=== PATIENT | male | born 1950 | race Caucasian/White ===

== ENCOUNTER → 2017-04-07 | Outpatient (CLI) | payer MEDICARE ==
--- NOTE | 2017-04-07 23:28 | MR ---
EXAMINATION TYPE: MR brain wo con DATE OF EXAM: 04/07/2017 COMPARISON: NONE HISTORY: Cerebral infarction, unspecified Standard multiplanar, multisequence MRI departmental protocol FINDINGS: There is a 1.5 cm mucous retention cyst in the right maxillary sinus. The ventricles have n ormal size. There is no mass effect nor midline shift. There is no sign of intracranial hemorrhage. T here are scattered foci of increased signal in the white matter around the lateral ventricles on the T2 and FLAIR images. Total number is less than 10. These measure up to 8 mm. There is a single focus in the anterior left temporal lobe. The brainstem is intact. Sella turcica appears normal. Corpus danny losum appears normal. There is no evidence of cortical infarct. IMPRESSION: White matter changes are nonspecific. Consider chronic small vessel ischemia and less likely demyelin ating disease. No evidence of cortical infarct. Small mucus retention cyst right maxillary sinus.
== END | disposition home or self-care (01) ==
LOC: RADMRIMAIN 10:29
PROVIDERS: ATTEND Psychiatry & Neurology Neurology
DX: I63.9 Cerebral infarction, unspecified (principal); G25.0 Essential tremor
CPT/HCPCS: 70551

== ENCOUNTER → 2017-05-25 | Outpatient (CLI) | payer MEDICARE ==
--- NOTE | 2017-05-25 12:11 | MR ---
EXAMINATION TYPE: MR shoulder LT wo con DATE OF EXAM: 05/25/2017 COMPARISON: Plain film 05/05/2017 HISTORY: Pain in left shoulder TECHNIQUE: Multiplanar, multisequence imaging of the left shoulder is performed without contrast. FINDINGS: Rotator Cuff: There is thickening of the rotator cuff at its insertion, increased signal within the r otator cuff at its insertion may be due to tendinosis, plain film shows calcific tendinitis, Acromioclavicular Joint: Arthropathy of the acromioclavicular joint, hypertrophic change causes mass effect on the musculotendinous junction of supraspinatus. Glenohumeral Joint: Intact. Labrum: The labrum appears grossly intact given limitation of non-arthrogram study. Biceps Tendon: The long head of biceps is in normal location within bicipital groove. Fluid signal co urses along the long head of biceps tendon, correlate for tenosynovitis., Bone marrow signal: There are pseudocysts present within the humeral head. Other: There is a small joint effusion. Some fluid signal present in the subacromial subdeltoid bursa . Distal acromion only slightly downturned. IMPRESSION: Tendinosis and calcific tendinitis. No gaston rotator cuff tear. Arthropathy as described, tenosynovit is. Correlate for impingement.
== END | disposition home or self-care (01) ==
LOC: RADMRIMAIN 10:30
PROVIDERS: ATTEND Orthopaedic Surgery
DX: M65.812 Other synovitis and tenosynovitis, left shoulder (principal); M75.92 Shoulder lesion, unspecified, left shoulder; M12.812 Other specific arthropathies, not elsewhere classified, left shoulder

== ENCOUNTER → 2018-02-01 | Outpatient (CLI) | payer MEDICARE ==
--- NOTE | 2018-02-01 18:37 | MR ---
Right ankle MRI HISTORY: Right ankle pain Multiplanar multisequence imaging through the right ankle No comparisons There is an osteochondral abnormality along the lateral ankle mortise, lesion measures approximately 9 mm in transverse dimension on coronal images x 1 cm in anterior to posterior dimension, T1 intermed iate signal, T2 hyperintensity is present, peripheral low signal compatible with sclerotic change wit h possible geode formation and multilocular appearance compatible with chronic injury, possible osteo necrosis. Alignment is maintained. No evident collapse. Joint spaces relatively maintained. Plantar a poneurosis is intact. There is a plantar calcaneal spur present. The Achilles tendon shows abnormal i nternal signal and thickening compatible with interstitial tear without disruption. Peroneal brevis and longus tendons are intact. Flexor and extensor tendons are intact. Some fluid sig nal present along the flexor tendons is noted. There is some fluid signal present at the level of the talar neck laterally extending towards the sinus Tarsi which may represent a ganglion cyst measuring approximately 2 to 3 cm by 7-8 mm x 9 mm. IMPRESSION: Lateral ankle mortise shows possible remote osteochondral injury without significant foca l defect as described, no evident collapse. Chronic Achilles tendon tear and possible ganglion cyst a s described, additional findings above.
== END | disposition home or self-care (01) ==
LOC: RADMRIMAIN 06:09
PROVIDERS: ATTEND Orthopaedic Surgery
DX: S86.011A Strain of right Achilles tendon, initial encounter (principal)

== ENCOUNTER → 2019-04-10 | Outpatient (CLI) | payer MEDICARE ==
--- NOTE | 2019-04-10 14:59 | US ---
EXAMINATION TYPE: US kidneys/renal and bladder DATE OF EXAM: 04/10/2019 COMPARISON: NONE CLINICAL HISTORY: R94.4 Abnormal results of kidney function studies. Abnormal labs EXAM MEASUREMENTS: Right Kidney: 11.8 x 5.0 x 6.5 cm Left Kidney: 11.6 x 5.2 x 5.9 cm Right Kidney: No hydronephrosis or masses seen Left Kidney: Lower pole cystic appearing lesion in sinus - 2.4 x 2.0 x 2.1 cm. Echogenic focus with shadow= 0.6 cm Bladder: distended, anechoic Bilateral Jets not seen There is no evidence for hydronephrosis at this point in time. The urinary bladder is nondistended. Bilateral ureteral jets are not seen. IMPRESSION: 1. No hydronephrosis of either kidney. 2. Left renal sinus cyst appears simple and benign measuring 2.4 cm. 3. 6 mm nonobstructing left renal calculus.
== END | disposition home or self-care (01) ==
LOC: RADUSWWP 12:55
PROVIDERS: ATTEND Family Medicine
DX: N20.0 Calculus of kidney (principal); N28.1 Cyst of kidney, acquired; I10 Essential (primary) hypertension
CPT/HCPCS: 76770

== ENCOUNTER → 2019-07-03 | Outpatient (CLI) | payer MEDICARE ==
--- NOTE | 2019-07-03 11:47 | XR ---
EXAMINATION TYPE: XR KUB DATE OF EXAM: 07/03/2019 11:27 AM CLINICAL HISTORY: Left-sided kidney stone. TECHNIQUE: Single supine KUB image of the abdomen is obtained. COMPARISON: Renal ultrasound April 10, 2019 FINDINGS: No definitive nephrolithiasis with particular attention to the left kidney atrophy area of recent ultrasound concern. Occasional pelvic phleboliths. Overall nonobstructive bowel gas pattern. M [id number] multilevel spurring in the lumbar spine. IMPRESSION: No definitive nephrolithiasis.
== END | disposition home or self-care (01) ==
LOC: RADXRMAIN 11:12
PROVIDERS: ATTEND Urology
DX: N20.0 Calculus of kidney (principal)
CPT/HCPCS: 74018

== ENCOUNTER → 2019-07-12 | Outpatient (CLI) | payer MEDICARE ==
--- NOTE | 2019-07-12 09:35 | CT ---
EXAMINATION TYPE: CT abdomen wo con DATE OF EXAM: 07/12/2019 COMPARISON: X-ray of 07/03/2019 HISTORY: left side pain, kidney stone CT DLP: 631 mGycm Automated exposure control for dose reduction was used. TECHNIQUE: Helical acquisition of images was performed from the lung bases through the top of iliac crest to include entire abdomen. CONTRAST: Performed without Oral Contrast and without IV contrast. FINDINGS: LUNG BASES: Subsegmental changes involving the lung bases most typical of atelectasis. The heart is e nlarged. Coronary artery calcifications noted. LIVER/GB: No significant abnormality is appreciated. PANCREAS: No significant abnormality is seen. SPLEEN: Spleen measures 16 cm correlate for splenomegaly. ADRENALS: No significant abnormality is seen. KIDNEYS: There is no evidence of renal calculus. There is nonspecific perinephric stranding bilateral ly which could be associated with infection correlate with urinalysis. Single hypodense lesion involv ing the mid posterior left kidney measures 5 Hounsfield units suggestive of a cyst. Lesion measures 1 .6 cm. BOWEL: The visualized bowel gas pattern nonspecific. LYMPH NODES: No significant abnormality is appreciated. OSSEOUS STRUCTURES: Hypertrophic and degenerative changes of the spine. FREE AIR: No free air is visualized. OTHER: Aorta of normal caliber. 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 Measuri ng 1.3 cm. IMPRESSION: 1. No evidence of hydronephrosis or nephrolithiasis. However, there is diffuse bilateral perinephric stranding which can be associated with infectious etiology correlate with urinalysis. 2. 1.6 cm left renal cyst. 3. Correlate for splenomegaly and hepatic cirrhosis with LFTs. 4. 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
== END | disposition home or self-care (01) ==
LOC: RADCTMAIN 08:58
PROVIDERS: ATTEND Urology
DX: N28.1 Cyst of kidney, acquired (principal); I72.8 Aneurysm of other specified arteries
CPT/HCPCS: 74150

== ENCOUNTER 2020-09-14 09:30 | Day surgery (SDC) | payer MEDICARE ==
[2020-09-11 12:22] VITALS: BMI 28.5
[~2020-09-14 09:30] MED LIST: LACTATED RINGERS 1,000 ML IV SCH; LIDOCAINE 1% (10MG/ML) FOR IV START INTRADERMA PRN
[2020-09-14 09:51] VITALS: RESP 16; TEMP 97.8
[2020-09-14] MEDS ORDERED: LACTATED RINGERS 1,000 ML IV ONE (09:56)
[2020-09-14 10:04] LABS: Glucose,Whole Blood 173 mg/dL (75-99)
[2020-09-14] MEDS ORDERED: PROPOFOL 10 MG/ML 20 ML VIAL IV ONE (10:15)
--- NOTE | 2020-09-14 10:40 | P.PCN ---
Date of Procedure: 09/14/20 Description of Procedure: BRIEF HISTORY: Patient is a 70-year-old male presenting for outpatient colonoscopy for history of colon polyps. Patient reports last colonoscopy approximately 7 years ago. No family history of colon cancer. No change in bowel habits. PROCEDURE PERFORMED: Colonoscopy with polypectomy. PREOPERATIVE DIAGNOSIS: History of colon polyps, patient was last colonoscopy approximately 7 years ago. ESTIMATED BLOOD LOSS: Minimal. IV sedation per Anesthesia. PROCEDURE: After informed consent was obtained, the patient, was brought into the endoscopy unit. IV sedation was administered by Anesthesia under continuous monitoring. Digital rectal examination was normal. Initially the Olympus CF-190 flexible video colonoscope was then inserted in the rectum, gradually advanced into the cecum without any difficulty. Careful examination was performed as the scope was gradually being withdrawn. Ileocecal valve and the appendiceal orifice were visualized and appeared normal. Prep was excellent. Mucosa of the cecum, ascending colon, transverse colon, descending colon, sigmoid colon, and rectum appeared normal. 3 sessile polyps measuring in size from 3-6 mm removed from the transverse colon, cecum and splenic flexure with cold snare polypectomy. Retroflexion was performed in the rectum and no lesions were seen, and internal hemorrhoids noted. The patient tolerated the procedure well. IMPRESSION: 3 polyps removed with cold snare polypectomy from the transverse colon, cecum and splenic flexure. Internal hemorrhoids. RECOMMENDATIONS: Findings of this examination were discussed with the patient and his family. Okay to resume diet. Okay to resume medications. Await pathology from polypectomies. Recommend repeat colonoscopy in 5 years pending pathology from polypectomies.
[2020-09-14 11:24] VITALS: BP 134/72; PULSE 63
== END 2020-09-14 11:36 | disposition home or self-care (01) ==
LOC: ORWHC2ENDO 09:30
PROVIDERS: ATTEND Internal Medicine
DX: Z12.11 Encounter for screening for malignant neoplasm of colon (principal); K64.8 Other hemorrhoids; D12.3 Benign neoplasm of transverse colon; D12.0 Benign neoplasm of cecum; I10 Essential (primary) hypertension; E78.5 Hyperlipidemia, unspecified; Z87.891 Personal history of nicotine dependence; E11.9 Type 2 diabetes mellitus without complications; F41.9 Anxiety disorder, unspecified; K21.9 Gastro-esophageal reflux disease without esophagitis; Z98.890 Other specified postprocedural states; Z79.84 Long term (current) use of oral hypoglycemic drugs; Z79.899 Other long term (current) drug therapy
CPT/HCPCS: 88305; 45385; J2704

== ENCOUNTER → 2021-08-10 | Outpatient (CLI) | payer MEDICARE ==
--- NOTE | 2021-08-10 16:18 | XR ---
EXAMINATION TYPE: XR chest 2V DATE OF EXAM: 08/10/2021 COMPARISON: None HISTORY: 71-year-old male cough, [id number]. TECHNIQUE: Frontal and lateral views FINDINGS: The cardiomediastinal silhouette, aorta, and pulmonary vasculature are within normal limits. Asymmetr ic elevation right hemidiaphragm. No consolidation or pleural effusion. Minimal central peribronchial cuffing noted. IMPRESSION: 1. Minimal central peribronchial cuffing could reflect bronchitis or asthma. No focal infiltrate. 2. Asymmetric elevation right hemidiaphragm. If concern for hemidiaphragmatic paralysis, a fluoroscop ic sniff test can be performed
== END | disposition home or self-care (01) ==
LOC: RADXRMAIN 09:11
PROVIDERS: ATTEND Internal Medicine
DX: J98.6 Disorders of diaphragm (principal)
CPT/HCPCS: 71046

== ENCOUNTER → 2021-09-22 | Outpatient (CLI) | payer MEDICARE ==
--- NOTE | 2021-09-22 16:03 | FL ---
Fluoroscopy INDICATION: Pain FINDINGS: Fluoroscopy time: 29 seconds. Images obtained: 1. There appears to be normal motion with quiet breathing. There may be some diminished excursion on the right. There is elevation of the right diaphragm in relation to the left. With active sniffing there is paradoxical motion of the right diaphragm. There is normal motion of le ft diaphragm. IMPRESSIONS: 1. 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
== END | disposition home or self-care (01) ==
LOC: RADUSWWP 09:09
PROVIDERS: ATTEND Internal Medicine
DX: J98.6 Disorders of diaphragm (principal)
CPT/HCPCS: 76000